=== PATIENT | male | born 1970 | race Caucasian/White ===

== ENCOUNTER 2016-11-20 10:29 | Emergency (ER) | payer BC ==
[~2016-11-20] VITALS: Ht 167.6 cm; Wt 100.0 kg
[~2016-11-20 10:29] MED LIST: DOXY100T18 PO; LISI-593 PO; Mupirocin 2% Oint TOPICAL; NORV5TAB PO; SULF-154 PO; WELL150T PO
[2016-11-20 10:31] VITALS: BP 164/79; PULSE 76; RESP 20; TEMP 98.6; O2SAT 99
[2016-11-20] MEDS ORDERED: ONDANSETRON HCL 4 MG/2 ML VIAL IVP ONE (11:00)
[2016-11-20] MEDS ORDERED: HYDROmorphone HCL PF 1 MG/ML VIAL IVS ONE (11:00)
[2016-11-20] MEDS ORDERED: SODIUM CHLORIDE 0.9% FLUSH 10 ML FLUSH IV FLUSH PRN (11:00)
--- NOTE | 2016-11-20 11:26 | PD ---
HPI . Abdominal pain Chief Complaint: Abdominal Pain Time Seen by Provider: 10:54 Travel History International Travel<30 days: No Contact w/Intl Traveler<30days: No Traveled to known affect area: No History of Present Illness HPI This patient presents with a chief complaint of abdominal pain. Onset was about a month ago. He states that it comes and goes. Sometimes the pain is very brief and sometimes it'll last week. He has not noted any exacerbating or relieving factors. He reports no associated fever and no associated GI symptoms. He does state that he has lost over 50 pounds in the recent past. He describes his pain as a pressure-like sensation and currently rates it 7/10. The patient states that he has seen his primary care physician for this. The patient is also complaining with some pain in the left groin. The left groin pain is new. He denies any testicular pain or swelling. He denies any penile discharge or urinary tract symptoms. PFSH Past Medical History Hx Anticoagulant Therapy: No Anxiety: No Depression: Yes Cancer: No Cardiovascular Problems: Yes (HTN) Diminished Hearing: No Endocrine: No GERD: Yes Genitourinary: No Hypertension: Yes Immune Disorder: No Musculoskeletal: No Neurologic: Yes Psychiatric: Yes Reproductive: No Respiratory: No Immunizations Current: No Seizures: Yes (in 2008 from sleep apnea ) Sleep Apnea: Yes Past Surgical History Cardiac Surgery: Yes (Heart cath "EP study") Other Surgery: Yes (Fatty tumor removal) Social History Alcohol Use: No Tobacco Use: No Substance Use: No Allergies-Medications (Allergen,Severity, Reaction): Coded Allergies: No Known Allergies (Verified , 01/04/16) Reported Meds & Prescriptions Reported Meds & Active Scripts Active Doxycycline Monohydrate 100 Mg Cap 100 Mg PO BID [Mupirocin 2% Oint] 22 APPLIC/22 GM Oint 1 Applic TOPICAL Q8HR 10 Days Reported Septra Ds (Trimethoprim/Sulfamethoxazole) Tab 1 Tab PO BID Norvasc (Amlodipine Besylate) 5 Mg Tab 2.5 Mg PO DAILY Zestril 40 mg (Lisinopril) 40 Mg Tab 40 Mg PO DAILY Wellbutrin-Sr (Bupropion HCl) 150 Mg Tabcr 300 Mg PO DAILY Review of Systems Except as stated in HPI: all other systems reviewed are Neg General / Constitutional: Positive: Weight Loss (intentional), No: Fever, Chills Gastrointestinal: Positive: Abdominal Pain, No: Nausea, Vomiting, Diarrhea Hematologic/Lymphatic: Positive: Lymph Node Enlargement Physical Exam Narrative GENERAL: Patient is awake and alert and does not appear to be in any distress. He is lying comfortably on the stretcher. His facial expression does not indicate pain. His extremities are relaxed. SKIN: warm/dry. He has some shotty left inguinal lymphadenopathy which is tender to palpation HEAD: Atraumatic. Normocephalic. EYES: Pupils equal and round. No scleral icterus. No injection or drainage. ENT: No nasal bleeding or discharge. Mucous membranes pink and moist. NECK: Trachea midline. Full range of motion. CARDIOVASCULAR: Regular rate and rhythm. Heart sounds are normal. RESPIRATORY: No accessory muscle use. Clear to auscultation. Breath sounds equal bilaterally. GASTROINTESTINAL: Abdomen soft. Nontender. Nondistended. : Normal uncircumcised male. No penile discharge. No testicular tenderness or swelling. The skin of the scrotum is normal appearing MUSCULOSKELETAL: No obvious deformities. No edema. NEUROLOGICAL: Awake and alert. No obvious cranial nerve deficits. Motor grossly within normal limits. Normal speech. PSYCHIATRIC: Appropriate mood and affect; insight and judgment normal. Data Data Last Documented VS Vital Signs Date Time Temp Pulse Resp B/P (MAP) Pulse Ox O2 Delivery O2 Flow Rate FiO2 11/20/16 10:31 98.6 76 20 164/79 (107) 99 Room Air Orders Orders Complete Blood Count With Diff (11/20/16 10:54) Comprehensive Metabolic Panel (11/20/16 10:54) Lipase (11/20/16 10:54) Urinalysis - C+S If Indicated (11/20/16 10:54) Ct Abd/Pel W Iv Contrast(Rout) (11/20/16 10:54) Iv Access Insert/Monitor (11/20/16 10:54) Ondansetron Inj (Zofran Inj) (11/20/16 11:00) Sodium Chloride 0.9% Flush (Ns Flush) (11/20/16 11:00) Hydromorphone Pf Inj (Dilaudid Pf Inj) (11/20/16 11:00) Iohexol 350 Inj (Omnipaque 350 Inj) (11/20/16 12:13) Labs Laboratory Tests Test 11/20/16 10:50 White Blood Count 9.0 TH/MM3 Red Blood Count 5.37 MIL/MM3 Hemoglobin 14.4 GM/DL Hematocrit 43.1 % Mean Corpuscular Volume 80.2 FL Mean Corpuscular Hemoglobin 26.8 PG Mean Corpuscular Hemoglobin Concent 33.4 % Red Cell Distribution Width 14.6 % Platelet Count 208 TH/MM3 Mean Platelet Volume 8.5 FL Neutrophils (%) (Auto) 58.3 % Lymphocytes (%) (Auto) 27.2 % Monocytes (%) (Auto) 10.7 % Eosinophils (%) (Auto) 3.0 % Basophils (%) (Auto) 0.8 % Neutrophils # (Auto) 5.2 TH/MM3 Lymphocytes # (Auto) 2.4 TH/MM3 Monocytes # (Auto) 1.0 TH/MM3 Eosinophils # (Auto) 0.3 TH/MM3 Basophils # (Auto) 0.1 TH/MM3 CBC Comment DIFF FINAL Differential Comment Blood Urea Nitrogen 14 MG/DL Creatinine 1.02 MG/DL Random Glucose 95 MG/DL Total Protein 7.8 GM/DL Albumin 3.7 GM/DL Calcium Level 8.6 MG/DL Alkaline Phosphatase 84 U/L Aspartate Amino Transf (AST/SGOT) 20 U/L Alanine Aminotransferase (ALT/SGPT) 28 U/L Total Bilirubin 1.7 MG/DL Sodium Level 141 MEQ/L Potassium Level 3.2 MEQ/L Chloride Level 103 MEQ/L Carbon Dioxide Level 28.7 MEQ/L Anion Gap 9 MEQ/L Estimat Glomerular Filtration Rate 79 ML/MIN Lipase 68 U/L [facility] Medical Decision Making Medical Screen Exam Complete: Yes Emergency Medical Condition: Yes Differential Diagnosis Differential diagnosis of abdominal pain includes but is not limited to gastritis, pancreatitis, hepatitis, gastroenteritis, gallbladder disease, constipation, urinary retention, UTI, peptic ulcer disease, diverticulitis or appendicitis Narrative Course This patient presents complaining with some abdominal pain as month. He has lost a lot of weight recently. He will be evaluated for possible cholelithiasis. He has a benign exam. CBC & BMP Diagram 11/20/16 10:50 Total Protein 7.8, Albumin 3.7, Calcium Level 8.6, Alkaline Phosphatase 84, Aspartate Amino Transf (AST/SGOT) 20, Alanine Aminotransferase (ALT/SGPT) 28, Total Bilirubin 1.7 H Last Impressions Abdomen/Pelvis CT 11/20/16 1054 Signed Impressions: Service Date/Time: October 12:04 - CONCLUSION: 1. No acute abnormality to explain the patient's pain. 2. 1 cm indeterminate lesion involving the right kidney. An outpatient followup MRI is suggested to further evaluate. Haseeb Franco Jr., MD This patient will be referred back to his primary care physician for further evaluation. Diagnosis Primary Impression: Abdominal pain Qualified Codes: R10.11 - Right upper quadrant pain Patient Instructions: Abdominal Pain (ED), General Instructions Disposition: 01 DISCHARGE HOME Condition: Stable Baylee Cano MD Nov 20, 2016 11:26
[2016-11-20 11:39] LABS: AUTOMATED NEUTROPHIL # 5.2 TH/MM3 (1.8-7.7); BASOPHIL # 0.1 TH/MM3 (0-0.2); BASOPHIL % 0.8 % (0.0-2.0); EOSINOPHIL # 0.3 TH/MM3 (0-0.4); HEMATOCRIT 43.1 % (39.0-51.0); HEMO FLAGS DIFF FINAL; LYMPH % 27.2 % (9.0-44.0); LYMPHOCYTE # 2.4 TH/MM3 (1.0-4.8); MEAN CELL VOLUME 80.2 FL (80.0-100.0); MEAN CORPUSCULAR HEMOGLOBIN 26.8 PG (27.0-34.0); MEAN CORPUSCULAR HGB CONC 33.4 % (32.0-36.0); MONO % 10.7 % (0.0-8.0); NEUT % 58.3 % (16.0-70.0); PLATELET COUNT 208 TH/MM3 (150-450); RED BLOOD COUNT 5.37 MIL/MM3 (4.50-5.90); RED CELL DISTRIBUTION WIDTH 14.6 % (11.6-17.2)
[2016-11-20 11:51] LABS: ALT (GPT) 28 U/L (12-78); ANION GAP 9 MEQ/L (5-15); AST (GOT) 20 U/L (15-37); BICARBONATE 28.7 MEQ/L (21.0-32.0); BLOOD UREA NITROGEN 14 MG/DL (7-18); CHLORIDE 103 MEQ/L (98-107); GLOMERULAR FILTRATION RATE 79 ML/MIN (>89); POTASSIUM 3.2 MEQ/L (3.5-5.1); SODIUM (NA) 141 MEQ/L (136-145)
[2016-11-20 11:53] LABS: ALKALINE PHOSPHATASE 84 U/L (45-117); TOTAL BILIRUBIN ADULT 1.7 MG/DL (0.2-1.0)
[2016-11-20] MEDS ORDERED: IOHEXOL 350 MG/ML 10 ML VIAL (for RAD DIAG) IVCONTRAST ONE (12:13)
--- NOTE | 2016-11-20 12:41 | RADRPT ---
EXAM DATE/TIME: 11/20/2016 12:04 [facility] COMPARISON: No previous studies available for comparison. INDICATIONS : Abdominal and groin pain for four days. IV CONTRAST: 90 cc Omnipaque 350 (iohexol) IV ORAL CONTRAST: No oral contrast ingested. RADIATION DOSE: 12.41 CTDIvol (mGy) MEDICAL HISTORY : Seizures. Hypertension. SURGICAL HISTORY : None. ENCOUNTER: Initial ACUITY: 1 day PAIN SCALE: 4/10 LOCATION: Right lower quadrant TECHNIQUE: Volumetric scanning of the abdomen and pelvis was performed. Using automated exposure control and ad justment of the mA and/or kV according to patient size, radiation dose was kept as low as reasonably achievable to obtain optimal diagnostic quality images. DICOM format image data is available electro nically for review and comparison. FINDINGS: LOWER LUNGS: The visualized lower lungs are clear. LIVER: Homogeneous density without lesion. There is no dilation of the biliary tree. No calcified gallston es. SPLEEN: Normal size without lesion. PANCREAS: Within normal limits. KIDNEYS: There is a 1 cm cortical lesion involving the lateral midpole of the right kidney. Hounsfield units a re 42 on this postcontrast exam. Kidneys are otherwise unremarkable. No hydronephrosis or stones. ADRENAL GLANDS: Within normal limits. VASCULAR: There is no aortic aneurysm. BOWEL/MESENTERY: The stomach, small bowel, and colon demonstrate no acute abnormality. There is no free intraperitone al air or fluid. ABDOMINAL WALL: Within normal limits. RETROPERITONEUM: There is no lymphadenopathy. BLADDER: No wall thickening or mass. REPRODUCTIVE: Within normal limits. INGUINAL: There is no lymphadenopathy or hernia. MUSCULOSKELETAL: Within normal limits for patient age. CONCLUSION: 1. No acute abnormality to explain the patient's pain. 2. 1 cm indeterminate lesion involving the right kidney. An outpatient followup MRI is suggested to amy Franco Jr., MD on November 20, 2016 at 12:35 Board Certified Radiologist. This report was verified electronically.
== END 2016-11-20 13:41 | disposition home or self-care (01) ==
LOC: NEPE 10:29
DX: R10.11 Right upper quadrant pain (principal); I10 Essential (primary) hypertension; K21.9 Gastro-esophageal reflux disease without esophagitis; F32.9 Major depressive disorder, single episode, unspecified; R56.9 Unspecified convulsions; G47.30 Sleep apnea, unspecified; Z79.899 Other long term (current) drug therapy
CPT/HCPCS: 74177; 80053; 83690; 85025; 96374; 99285; J2405; Q9967